=== PATIENT | female | born 1945 | race Caucasian/White ===

== ENCOUNTER 2017-06-26 11:42 | Emergency (ER) | END 2017-06-26 20:11 | disposition home or self-care (01) ==

== ENCOUNTER 2017-07-01 09:35 | Emergency (ER) | END 2017-07-01 17:30 | disposition home or self-care (01) ==

== ENCOUNTER 2017-07-07 12:39 | Emergency (ER) | END 2017-07-08 05:30 | disposition home or self-care (01) ==

== ENCOUNTER 2017-10-19 03:49 | Emergency (ER) | END 2017-10-19 09:00 | disposition home or self-care (01) ==

== ENCOUNTER 2018-07-13 13:28 | Emergency (ER) | payer MEDICARE, OTHER ==
[~2018-07-13] VITALS: Ht 170.2 cm; Wt 80.0 kg
[~2018-07-13 13:28] MED LIST: ACET1TAB40 PO; ACYC200C2 PO; ALEN70TA5 PO; ALLO300T2 PO; ALPR0.5T6 PO; FERR-49 PO; FLUO40CA10 PO; FURO40TA4 PO; HYDR-3980 PO; LEVO50TA89 PO; LISI10TA2 PO; MELO15TA30 PO; METO-335 PO; MEVA40 PO; OXYC-209 PO; OXYC-279 PO; RIVA10TA PO; TEMA30CA6 PO; TIZA2TAB PO
[2018-07-13 13:32] VITALS: Ht 170.2 cm; Wt 80.0 kg
[2018-07-13] MEDS ORDERED: HYDROCODONE/APAP (5/325) TAB PO ONE (14:00)
[2018-07-13] MEDS ORDERED: GABA300C16 PO (15:15)
[2018-07-13] MEDS ORDERED: METO-335 PO (15:15)
[2018-07-13] MEDS ORDERED: RIVA20TA5 PO (15:15)
[2018-07-13] MEDS ORDERED: ACET-820 PO (15:17)
[2018-07-13] MEDS ORDERED: TOPI100T11 PO (15:18)
[2018-07-13] MEDS ORDERED: LEVO50TA89 PO (15:18)
[2018-07-13] MEDS ORDERED: FLUO20CA38 PO (15:19)
[2018-07-13] MEDS ORDERED: POTA20TA96 PO (15:19)
[2018-07-13] MEDS ORDERED: FURO40TA4 PO (15:20)
--- NOTE | 2018-07-13 16:00 | ERD ---
ER Documentation Chief Complaint Chief Complaint BIB RA FOR EVAL OF FALL FROM BED HIT HEAD. NO KO. ON ZER[place] HPI This is a 73-year-old female who is here for fall. The patient accidentally rolled out of bed landing on her right side and hit her head on the bedside nightstand. She did not have any loss of consciousness however she takes blood thinners for cardiac issues. She has no headache. She complains of pain to the right shoulder and humerus. She says she has chronic right shoulder problems she is complaining of sharp pain when she moves her arm and better with rest no deformity is noted but the patient is morbidly obese. Denies any hip pain back pain other extremity pain no chest pain neck pain no focal neurological complaints ROS All systems reviewed and are negative except as per history of present illness. Medications Home Meds Reported Medications Furosemide* (Furosemide*) 40 Mg Tablet, 40 MG PO NEEDED, TAB 07/13/18 Potassium Chloride* (Potassium Chloride*) 20 Meq Tablet.er, 20 MEQ PO DAILY, TAB.SA 07/13/18 Fluoxetine Hcl* (Prozac*) 20 Mg Capsule, 20 MG PO TID, CAP 07/13/18 Levothyroxine Sodium* (Synthroid*) 50 Mcg Tablet, 50 MCG PO BEFORE BREAKFAST, #30 TAB 07/13/18 Topiramate* (Topiramate*) 100 Mg Tablet, 150 MG PO DAILY, TAB 07/13/18 Acetaminophen with Codeine (Tylenol with Codeine #4 Tablet) 1 Each Tablet, 1 EACH PO TID, TAB 07/13/18 Rivaroxaban* (Xarelto*) 20 Mg Tablet, 20 MG PO WITH DINNER, TAB 07/13/18 Metoprolol Succinate* (Toprol XL*) 25 Mg Tab.sr.24h, 25 MG PO DAILY, #30 TAB 07/13/18 Gabapentin* (Gabapentin*) 300 Mg Capsule, 900 MG PO TID, #270 CAP 07/13/18 Discontinued Reported Medications Acyclovir* (Acyclovir*) 200 Mg Capsule, 200 MG PO QID, CAP 06/26/17 Tizanidine Hcl* (Zanaflex*) 2 Mg Tablet, 2 MG PO Q6H PRN for SPASTICITY, TAB 06/26/17 Meloxicam* (Mobic*) 15 Mg Tablet, 15 MG PO DAILY, #30 TAB 06/26/17 Rivaroxaban* (Xarelto*) 10 Mg Tablet, 10 PO DAILY, TAB 06/26/17 Alprazolam* (Alprazolam*) 0.5 Mg Tablet, 0.5 MG PO Q8H PRN for ANXIETY, TAB 06/26/17 Acetaminophen with Codeine (Acetaminophen-Cod #3 Tablet) 1 Each Tablet, 1 TAB PO Q6H PRN for SEVERE PAIN LEVEL 7-10, #7 TAB 06/26/17 Alendronate Sodium* (Fosamax*) 70 Mg Tablet, 70 MG PO Q7D, #4 TAB 06/26/17 Temazepam* (Restoril*) 30 Mg Capsule, 30 MG PO HS PRN for INSOMNIA, CAP 03/26/15 Levothyroxine Sodium* (Synthroid*) 50 Mcg Tablet, 50 MCG PO AC BREAKFAST, TAB 03/26/15 Allopurinol* (Allopurinol*) 300 Mg Tablet, 300 MG PO BID, TAB 03/26/15 Fluoxetine Hcl* (Prozac*) 40 Mg Capsule, 40 MG PO DAILY, CAP 03/26/15 Metoprolol Succinate* (Toprol XL*) 25 Mg Tab.sr.24h, 25 MG PO BID, TAB 03/26/15 Lisinopril* (Lisinopril*) 10 Mg Tablet, 10 MG PO DAILY, TAB 03/26/15 Lovastatin (Lovastatin) 40 Mg Tablet, 40 MG PO DAILY 09/01/12 Ferrous Sulfate* (Feosol*) 1 Tab Tablet, 325 TAB PO DAILY 09/01/12 Furosemide (Lasix) 40 Mg Tab, 40 MG PO DAILY PRN for SWELLING 09/01/12 Discontinued Scripts Oxycodone HCl/Acetaminophen (Percocet 5-325 mg Tablet) 1 Each Tablet, 1 EACH PO Q8, #30 TAB Prov:MILDRED YANG S. 10/19/17 Hydrocodone/Acetaminophen ([place] 10-325 Tablet) 1 Each Tablet, 1 TAB PO Q6H PRN for PAIN, #20 TAB Prov:MILDRED YANG S. 10/19/17 Oxycodone HCl/Acetaminophen (Percocet 10-325 mg Tablet) 1 Each Tablet, 1 EACH PO q 6 hours, #20 TAB Prov:CRISTIAN HICKS DO 06/26/17 Allergies Allergies: Coded Allergies: Penicillins (Unverified Allergy, Unknown, 07/13/18) ampicillin (Unverified Allergy, Unknown, 07/13/18) propoxyphene (Unverified Allergy, Unknown, 07/13/18) Uncoded Allergies: BEE STINGS (Allergy, Unknown, 03/25/15) PMhx/Soc History of Surgery: Yes (cardiac ablation for arrthymias) Anesthesia Reaction: No Hx Neurological Disorder: No Hx Respiratory Disorders: No Hx Cardiac Disorders: Yes (HTN, AFIB) Hx Psychiatric Problems: Yes (AMS) Hx Miscellaneous Medical Probl: Yes (scoliosis) Hx Alcohol Use: No Hx Substance Use: No Hx Tobacco Use: No Smoking Status: Never smoker FmHx Family History: No coronary disease Physical Exam Vitals Vital Signs Date Temp Pulse Resp B/P (MAP) Pulse Ox O2 O2 Flow FiO2 Time Delivery Rate 07/13/18 96.3 68 17 132/76 97 13:32 (94) Physical Exam Const: Well-developed, well-nourished Head: Atraumatic, normocephalic Eyes: Normal Conjunctiva, PERRLA, EOMI, normal sclera, no nystagmus ENT: Normal External Ears, Nose and Mouth, moist mucus membranes. Neck: Full range of motion. No meningismus, no lymphadenopathy. Resp: Clear to auscultation bilaterally, no wheezing, rhonchi, rales Cardio: Regular rate and rhythm, no murmurs, S1 S2 present Abd: Soft, non tender x 4, non distended. Normal bowel sounds, no guarding or rebound, no pulsitile abdominal masses or bruits Skin: No petechiae or rashes, no ecchymosis , no maculopapular rash Back: No midline or flank tenderness Ext: No cyanosis, or edema, FROM x 4, limited range of motion of right shoulder due to pain normal inspection, tenderness to the midshaft of the right humerus neurovascularly intact x 4 Neur: Awake and alert, STR 5/5 x 4, sensation intact x 4, no focal findings, cerebellum intact Psych: Normal Mood and Affect Results 24 hrs Current Medications Medications Dose Sig/Sp Start Time Status Last (Trade) Ordered Route PRN Stop Time Admin Dose Reason Admin 2 tab ONCE ONCE 07/13/18 DC 07/13/18 Acetaminophen PO 14:00 07/13/18 14:03 / 14:01 Hydrocodone Bitart ([place] (5/325)) Procedures/MDM MR #: [id number] DOS: 07/13/18 1426 Ordering MD: CRISTIAN HICKS DO Location: E/R Room/Bed: PROCEDURE: CT of the right humerus without contrast CLINICAL INDICATION: Right shoulder pain TECHNIQUE: CT scan of the right humerus was performed . No IV contrast was administered. Coronal and sagittal reformatted images were obtained from the axial source images. Images were reviewed on a high-resolution PACS workstation. The calculated radiation dose measures 1037.97 mGy centimeters. The CTDI measures 51.1 mGy. One or more of the following dose reduction techniques were used: - Automated exposure control. - Adjustment of the mA and/or kV according to patient size . - Use of iterative reconstruction technique. - DICOM images are available. COMPARISON: DR THOMAS 07/13/2018 FINDINGS: Osseous structures: There is severe narrowing of the glenohumeral joint with bulky osteophyte formation at the glenoid and humeral head. The humeral head is subluxed anteriorly. There is marked remodelling of the undersurface of the acromion related to humeral head elevation. The acromion is mildly fragmented which could be sequelae of remote trauma. No acute fracture is suspected. 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 There could be a preexisting ox acromiale. There is severe narrowing of the coracoid and lesser tuberosity space. Soft tissues: Severe atrophy seen throughout the rotator cuff muscle bulk related to a chronic, massive rotator cuff tear. There is a large glenohumeral joint effusion and synovitis. Intrarticular bodies are present. IMPRESSION: 1. Findings of severe rotator cuff arthropathy with bulky osteophyte formation and slight anterior subluxation of the humeral head. 2. Large glenohumeral joint effusion with synovitis and multiple intrarticular bodies. 3. Severe AC joint arthrosis and marked remodelling of the undersurface of the acromion. 4. No acute fracture is suspected. RPTAT: PP .Lokesh Art MD, Date Time Electronically viewed and signed by .Lokesh Art MD, MD on 07/13/2018 15:32 .d/ CC: CRISTIAN HICKS DO [id number] Ordering MD: CRISTIAN HICKS DO Location: E/R Room/Bed: PROCEDURE: CT Brain without contrast. CLINICAL INDICATION: Trauma. Headache. TECHNIQUE: A CT of the brain without contrast was performed utilizing axial sections from the skull base through the vertex. The patient was scanned without intravenous contrast enhancement. Sagittal and coronal reformatted images were obtained using the data from the axial images. Total exam DLP is 634.23 mGy-cm. CTDIvol is 38.91 mGy. One or more of the following dose reduction techniques were used: Automated exposure control, adjustment of the mA and/or kV according to patient size, use of iterative reconstruction technique. DICOM images are available. COMPARISON: CT scan of the brain dated 07/01/2017. FINDINGS: There is normal earl-white matter differentiation. There is enlargement of the ventricles and subarachnoid spaces consistent with atrophy. There is decreased attenuation of the periventricular white matter consistent with microangiopathic ischemic change. There is no intracranial hemorrhage or space-occupying lesion. There are vascular calcifications consistent with atherosclerosis. There is no skull fracture or lytic lesion. IMPRESSION: 1. Atrophy. 2. Microangiopathic ischemic change. 3. Atherosclerosis. 4. No intracranial hemorrhage. 5. Otherwise unremarkable noncontrast CT scan of the brain. 2. No change from 07/01/2017. RPTAT: QQ .Wencelsao Hernandez MD, MD Date Time Electronically viewed and signed by .Wenceslao Hernandez MD, MD on 07/13/2018 14:38 .R/ CC: CRISTIAN HICKS DO [id number] Ordering MD: CRISTIAN HICKS DO Location: E/R Room/Bed: PROCEDURE: Right humerus CLINICAL INDICATION: Right shoulder pain status post fall TECHNIQUE: AP and lateral views of the right humerus COMPARISON: Right shoulder film on same date and right shoulder on 06/26/2017 FINDINGS: Possible right proximal humeral and humeral neck fracture is suggested. Severe right sub acromial and acromioclavicular and glenohumeral joint space narrowing is noted with osteophytes. High riding right humeral head is present compatible with rotator cuff rupture. Multiple well corticated ossific densities are noted superimposed over the right shoulder joint and inferior axillary recess compatible with ossified loose bodies or heterotopic calcifications. The right mid and distal humeral diaphysis and right elbow joint appear intact . IMPRESSION: 1. Possible acute superimposed on chronic right humeral neck fracture 2. High riding right humeral head compatible with rotator cuff tear 3. Severe right subacromial subdeltoid and right acromioclavicular degenerative disease 4. Multiple well corticated ossific density superimposed over the right shoulder joint. This may represent ossified intra-articular loose bodies or heterotopic ossification RPTAT: HDC .Sharon Marcum MD, Date Time Electronically viewed and signed by .Sharon Marcum MD, MD on 07/13/2018 14:31 .C/ CC: CRISTIAN HICKS DO [id number] MR #: [id number] DOS: 07/13/18 1354 Ordering MD: CRISTIAN HICKS DO Location: E/R Room/Bed: PROCEDURE: Right Shoulder series CLINICAL INDICATION: Right shoulder pain status post trauma TECHNIQUE: Three views of the right shoulder. COMPARISON: 06/26/2017 right shoulder series FINDINGS: Severe high riding right humeral head and degenerative changes are noted in the right subacromial space. Severe right acromioclavicular osteoarthropathy is present. Recommend additional imaging of the right shoulder joint consistent CT or MR as a subtle acute superimposed on chronic fracture may be present. Chronic anterior subluxation or dislocation is suggested. The right lung apex and right ribs are clear. IMPRESSION: 1. Severe right sub acromial and acromioclavicular and glenohumeral degenerative changes and cannot exclude an acute superimposed on chronic right humeral neck impaction type fracture. Recommend CT to further evaluate 2. Chronic-appearing anterior subluxation or dislocation of the right humeral head. 3. High-riding right humeral head compatible with rotator cuff injury. A call report was made to Cristian Hicks at 07/13/2018 2:27:31 PM following the completion of the examination by the undersigned. RPTAT: HDC .Sharon Marcum MD, MD Date Time Electronically viewed and signed by .Sharon Marcum MD, MD on 07/13/2018 14:27 .C/ CC: CRISTIAN HICKS DO [id number] No acute pathology there is no fracture on CT scan. We will provide her with a arm sling and pain meds and discharged home. Gave her head warning signs Patient feels much better at this time, and vital signs are normal, symptoms have improved. I did give strict instructions to return to the ED if symptoms continue or worsen, patient will otherwise follow-up with primary care physician. Patient understood instructions and agreed to plan. Disclaimer: Inadvertent spelling and grammatical errors are likely due to EHR/dictation software use and do not reflect on the overall quality of patient care. Also, please note that the electronic time recorded on this note does not necessarily reflect the actual time of the patient encounter. Departure Diagnosis: Primary Impression: Head injury Encounter type: initial encounter Qualified Codes: S09.90XA - Unspecified injury of head, initial encounter Additional Impressions: Right shoulder injury Encounter type: initial encounter Qualified Codes: S49.91XA - Unspecified injury of right shoulder and upper arm, initial encounter Fall Encounter type: initial encounter Qualified Codes: W19.XXXA - Unspecified fall, initial encounter Condition: CRISTIAN Izaguirre DO Jul 13, 2018 16:00
[2018-07-13] MEDS ORDERED: HYDR-3980 PO (16:15)
[2018-07-13 17:13] VITALS: BP 128/67; PULSE 72; RESP 16
== END 2018-07-13 17:23 | disposition home or self-care (01) ==
LOC: E/R 13:28
DX: S09.90XA Unspecified injury of head, initial encounter (principal); S49.91XA Unspecified injury of right shoulder and upper arm, initial encounter; I10 Essential (primary) hypertension; R51 Headache; W01.190A Fall on same level from slipping, tripping and stumbling with subsequent striking against furniture, initial encounter; Y92.9 Unspecified place or not applicable
CPT/HCPCS: 70450; 73200

== ENCOUNTER 2019-03-09 11:57 | Emergency (ER) | payer MEDICARE, OTHER ==
[~2019-03-09] VITALS: Ht 162.6 cm; Wt 108.0 kg
[~2019-03-09 11:57] MED LIST changes: +ACET-820 PO; -ACET1TAB40 PO; +ACET1TAB44 PO; -ACYC200C2 PO; -ALEN70TA5 PO; -ALPR0.5T6 PO; -FERR-49 PO; +FLUO20CA38 PO; +GABA300C16 PO; +HYDR-4011 PO; +LEVO50TA7 PO; -LISI10TA2 PO; -MELO15TA30 PO; +MIRA50TA PO; +NITR-58 PO; -OXYC-209 PO; -OXYC-279 PO; +POTA20TA96 PO; -RIVA10TA PO; +RIVA20TA5 PO; +TEMA30CA PO; -TEMA30CA6 PO; -TIZA2TAB PO; +TOPI100T11 PO
[2019-03-09] MEDS ORDERED: morphine 2 MG INJ IV STA (12:04)
[2019-03-09] MEDS ORDERED: ONDANSETRON 4 MG INJ IV STA (12:04)
[2019-03-09] MEDS ORDERED: SOD CHLORIDE 0.9% 1,000 ML IV STA (12:04)
[2019-03-09 12:05] VITALS: Ht 162.6 cm; Wt 108.0 kg
[2019-03-09] MEDS ORDERED: CEFTRIAXONE 1 GM/50 ML (PMX) 50 ML IVPB ONE (14:00)
[2019-03-09 16:00] VITALS: BP 101/72; PULSE 65; RESP 18
== END 2019-03-09 16:42 | disposition home or self-care (01) ==
LOC: E/R 11:57
DX: N30.00 Acute cystitis without hematuria (principal); R79.89 Other specified abnormal findings of blood chemistry; R53.1 Weakness; M54.5 Low back pain; I10 Essential (primary) hypertension; E03.9 Hypothyroidism, unspecified; Z79.02 Long term (current) use of antithrombotics/antiplatelets
CPT/HCPCS: 36415; 80053; 81001; 82550; 83690; 84484; 85025; 96374; 96375; 99284; J0696; J2270; J2405; J7030